=== PATIENT | female | born 1990 | race Hispanic/Latino ===

== ENCOUNTER 2018-03-11 20:27 | Emergency (ER) | payer OTHER ==
[2018-03-11] MEDS ORDERED: Ibuprofen 200 MG TAB ONE (21:33)
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
== END 2018-03-11 22:13 | disposition home or self-care (01) ==
LOC: ERS 20:27
DX: S13.4XXA Sprain of ligaments of cervical spine, initial encounter (principal); S40.012A Contusion of left shoulder, initial encounter; S90.111A Contusion of right great toe without damage to nail, initial encounter; S90.121A Contusion of right lesser toe(s) without damage to nail, initial encounter; R51 Headache; V49.60XA Unspecified car occupant injured in collision with unspecified motor vehicles in traffic accident, initial encounter
CPT/HCPCS: 70450; 72125

== ENCOUNTER → 2020-06-25 | Day surgery (SDC) | payer BC ==
[2020-06-24 09:25] VITALS: BMI 24.8
[~2020-06-25] MED LIST: Fentanyl 100 MCG/2 ML VIAL ONE; Ketamine 50 MG/ML (10ML VIAL) ONE; Midazolam HCl 2 mg/2 ml Vial ONE; PROPOFOL 20 ML ONE
--- NOTE | 2020-06-25 12:06 | OP ---
DATE OF PROCEDURE: 06/25/2020 STUDY PERFORMED: Transesophageal echocardiogram. INDICATIONS FOR PROCEDURE: A 29-year-old woman with VSD. DESCRIPTION OF PROCEDURE: The patient was taken to the PACU. The patient was sedated by Anesthesiology. A transesophageal probe was placed into the distal esophagus and stomach. Echocardiographic images were obtained. A bubble study was performed during the exam. A transesophageal probe was removed. FINDINGS: 1. Normal left ventricular systolic function. 2. Normal left atrial size. 3. Left ventricle and right ventricle are not dilated. 4. Normal mitral and aortic valves. 5. Mild mitral regurgitation. 6. Small perimembranous ventricular septal defect. 7. Atherosclerotic debris in the descending aorta. IMPRESSION: Small perimembranous ventricular septal defect. Job ID: [id number]
== END ==
LOC: CCL 06:04
PROVIDERS: ATTEND Internal Medicine Cardiovascular Disease
PROC: B24BZZ4 Ultrasonography of Heart with Aorta, Transesophageal (ICD-10-PCS; principal; 2020-06-25)
DX: Q21.0 Ventricular septal defect (principal); I34.0 Nonrheumatic mitral (valve) insufficiency; I70.0 Atherosclerosis of aorta; Z88.0 Allergy status to penicillin; Z91.011 Allergy to milk products
CPT/HCPCS: 93312; J2250; J2704; J3010